=== PATIENT | male | born 1980 | race Two or more races ===

== ENCOUNTER 2019-01-15 17:14 | Outpatient (AMB) | payer BC, SELFPAY ==
[2019-01-15 17:23] VITALS: BP 176/101; PULSE 63; RESP 18; TEMP 37.1; O2SAT 99; BMI 33.0
--- NOTE | 2019-01-15 17:23 | UCVISIT ---
Intake Ht./Wt. Decline/Exclusions Patient Declined Height and Weight this visit: No PT Meets exclusion criteria: No Vital Signs 01/15/19 17:23 01/15/19 17:26 01/15/19 17:30 Height 5 ft 6 in Height Method Measured Weight 92.986 kg Weight Measurement Method Standing Scale BMI 33.0 Temp 98.7 F Temp Source Temporal Artery Scan Pulse 63 Pulse Source Monitor Respiration 18 BP 176/101 H 181/120 H 168/98 H Blood Pressure Source Automatic Cuff Automatic Cuff Manual Cuff- Auscultation Blood Pressure Location Left Upper Arm Right Upper Arm Left Upper Arm Position Sitting Sitting Sitting Pulse Oximetry (%) 99 Oxygen Delivery Method Room Air Intake Visit Reasons: UC Dizziness Triage Triage Allergy / Med Rec Allergies No Known Allergies Allergy (Verified 01/15/19 17:58) Band Placement: Patient Identification XIN: [id number] Arrival Mode of Arrival: Private Vehicle Method of Arrival: Ambulatory Accompanied By: Self PCP or OBGYN visit in last 3 months: No Language Preferred Language: Spanish Air Export Agent Required: No Social History Alcohol / Drugs Hx Alcohol Use: No Hx Substance Use: No Safety Do You Feel Safe at Home: Yes Authorities Contacted: N/A Graham Fall Scale Special Populations Patient Comatose, Paralyzed or Immobile: No Patient Under the Age of 44 Years Old: No Assessment History of falling; immediate or within 3 months: No Secondary diagnosis: No Ambulatory aid: None IV Infusion: No Gait/Transferring: Normal/bedrest/immobile Mental Status: Oriented to own ability Score Score: 0 Risk Level/Action Risk Level: Low Risk Action: Good Basic Nursing Care Fall Star Level 1 Fall Star Level 1: Yes Patient Education Topic Education Topics: Discharge Instructions and Plan of Care Teaching Recipient: Patient Readiness, Motivation to Learn: Active Methods: Verbal instruction and Hand Out Educ Materials Suggested by INFO Button/Rx Monograph Given: No Response: Verbalize Understanding Air Export Agent Required: No Population Health PMH Hx Congestive Heart Failure: No Hx Diabetes Mellitus Type 1: No Hx Diabetes Mellitus Type 2: No Hx Renal Disease: No Hx Chronic Obstructive Pulmonary Disease (COPD): No Past Medical History Reviewed and agree with Nursing documentation.: Yes Past Medical History History Provided By: Patient Past Medical History: Yes Cardiac Medical History Hx Cardiac Disorders: Yes Hx Congestive Heart Failure: No Hx Hypertension: Yes Endocrine Medical History Hx Diabetes Mellitus Type 1: No Hx Diabetes Mellitus Type 2: No Genitourinary Medical History Hx Renal Disease: No Respiratory Medical History Hx COPD: No HPI Dizziness (Cardio) presents with headache(s); denies rapid heart rate, syncope or change in vision denies change in vision Most Recent Cardiac Tests: No Data to Display Dizziness Associated symptoms: Reports headache(s); Denies chest pain, confusion or diplopia HPI Comments Details: Patient presents with dizziness, neck tightness, occipital headache, sensation of head fullness and occipital tenderness for 2 days. Patient attest to a history of hypertension that is not controlled with medication as he is not medication compliant. States that he was prescribed 10 mg of lisinopril that he takes as needed. He does attest to taking lisinopril last night and one again this morning. He denies any blurry vision denies any change in mentation denies any recent head trauma. Review of Systems (UC) Review of Systems All systems reviewed & no additional complaints except as documented Const Constitutional: Reports system reviewed and no additional complaints, except as documented, Denies body ache, Denies difficulty sleeping, Reports headache(s), Denies lack of energy, Denies poor appetite, Denies snoring, Denies weight gain and Denies weight loss Eyes Eyes: Denies blurry vision, Denies bulging eyes, Denies change in vision, Denies double vision, Denies loss of vision and Denies other visual disturbances ENT Ears. Nose, Mouth, and Throat: Reports system reviewed and no additional complaints, except as documented, Reports as per HPI and Reports headache(s) Card Cardiovascular: Denies chest pain, Denies chest pain at rest, Denies chest pain with activity, Denies fainting and Denies fast heart rate Resp Respiratory: Denies chest congestion, Denies cough, Denies excessive phlegm production and Denies snoring Musc Musculoskeletal: Reports as per HPI, Denies body aches, Denies joint pain and Denies numbness Neuro Neurologic: Denies system reviewed and no additional complaints, except as documented, Denies abnormal movements, Denies abnormal speech, Denies confusion, Denies fainting, Reports headache(s), Denies lack of coordination, Denies loss of vision and Denies numbness Psych Psychiatric: Denies confusion Exam (UC) Limitations: no limitations General Appearance: alert, in no apparent distress, comfortable, cooperative, healthy appearing, well developed and well groomed Head exam: atraumatic, normocephalic and normal inspection Eye exam: Reports normal appearance and Reports EOMI ENT exam: Present normal exam, normal external ear exam, TM's normal bilaterally, normal oropharynx and mucous membranes moist SPO2%: 98% Respiratory exam: Present normal lung sounds bilaterally, normal respiratory effort, able to speak in complete sentences and clear to ascultation bilaterally Cardiovascular exam: Present regular rate and regular rhythm Abdominal Exam: Present non-tender, non-distended, normal bowel sounds and soft Extremities exam: normal inspection Neurological Exam: Present alert, awake and oriented X3 Office Procedures Level of Care Nursing/Assessment/Reassessment Patient Status: Established Patient Nursing Assessment/Reassessment: Triage Asessment, Initial Vital Signs and RN General Assessments Coordination of Care: DC Instructions Simple Established Patient Charge Established Patient Point Assignment: 40 Established Patient Point Assignment: EP Level 2 (40-75) Procedures: Pulse Ox reading: Yes UC Refer Patient to ED Yes Supplemental Info Given patient is blood pressure in office, I counseled patient to go to the ED immediately for further care Assessment and Plan Assessment & Plan (1) Uncontrolled stage 2 hypertension: Plan - Katya Smart PA-C: Please go to the ER immediately Plan Details Plan of Treatment: Please go to the ER immediately Other Orders: Orders: Refer Patient to ED Today Instructions: ED Hypertension Conf Out Of Control Additional Information PA/PHYSICIST [employer] Supervising Physician: Kirk Horowitz DC Evaluation Discharge Information Seen, Treated and Released by Provider: No Left Prior to Receiving Discharge Instructions: No Transfer to Outside Facility: No Vital Signs Vitals Signs N/A: Yes Pain Pain Medication / Other Intervention Provided: No Medication Medication Given this Visit: No Discharge Information Condition on Discharge: Stable Mode of Discharge: Ambulatory Discharge Transportation: Private Vehicle Instructions Air Export Agent Required: No Discharge Instructions Given To: Patient Was Follow up Care Ordered: Yes Verbalizes Understanding of Discharge Instructions: Yes [facility] information card provided?: Yes Patient plan follow up w/PCP for [facility]: No Discharge Comment Discharge Comment: per Will PA pt to be referred to [facility] ed for higher loc, pt denies need for ambulance, pt verbalizes understanding of f/u instructions with eR
[2019-01-15 17:26] VITALS: BP 181/120
[2019-01-15 17:30] VITALS: BP 168/98
== END 2019-01-15 17:51 | disposition home or self-care (01) ==
PROVIDERS: PCP Family Medicine; Referring Provider Family Medicine; Visit Provider Physician Assistant
DX: I10 Essential (primary) hypertension (principal)

== ENCOUNTER → 2024-07-06 | Outpatient (CLI) | payer BC, SELFPAY ==
[2024-07-06 09:45] LABS: Quantiferon-TB* See Sep Rpt
[2024-07-06 10:30] LABS: Basophils % (Auto) 1 % (0-2.5); Eosinophils # (Auto) 0.1 Thou/mm3 (0.0-0.5); Eosinophils % (Auto) 3 % (0-10); Hemoglobin 13.9 g/dL (13.5-16.0); Immature Granulocytes % (Auto) 0 % (0-0); Lymphocytes # (Auto) 1.7 Thou/mm3 (1.0-4.8); Lymphocytes % (Auto) 39 % (10-50); Mean Corpuscular HGB Conc 34.8 g/dl (31.0-37.0); Mean Corpuscular Hemoglobin 30.3 pg (25.0-35.0); Mean Corpuscular Volume 87 fL (80-100); Monocytes # (Auto) 0.3 Thou/mm3 (0.0-0.8); Monocytes % (Auto) 7 % (0-12); Neutrophils # (Auto) 2.3 Thou/mm3 (1.8-7.7); Neutrophils % (Auto) 51 % (37-80); Nucleated Red Blood Cell % 0 /100 WBC (0); Platelet Count 230 Thou/mm3 (140-440); RDW Standard Deviation 39.8 fL (35.1-43.9); Red Blood Count 4.58 Miln/mm3 (4.50-5.90); White Blood Count 4.4 Thou/mm3 (3.8-10.6)
[2024-07-06 10:42] LABS: Alanine Aminotransferase 35 U/L (10-49); Albumin, Serum 4.6 gm/dL (3.5-5.0); Alkaline Phosphatase 86 U/L (46-116); Anion Gap 5 (7-16); Aspartate Amino Transferase 20 U/L (0-34); BUN/Creatinine Ratio 12 Ratio (12-20); Bilirubin,Direct 0.1 mg/dL (0.0-0.3); Bilirubin,Total 0.5 mg/dL (0.3-1.2); Blood Urea Nitrogen 11 mg/dL (9-23); Calcium 8.6 mg/dL (8.3-10.6); Carbon Dioxide 29.7 mMol/L (20.0-31.0); Cardiac Risk Estimate 6.8 RATIO (4.0-6.7); Chloride 105 mMol/L (98-107); Cholesterol 230 mg/dL (132-200); Creatinine (Component) 0.9 mg/dL (0.6-1.3); Glucose 103 mg/dL (74-106); HDL Cholesterol 34 mg/dL (40-60); LDL Cholesterol,Calculated 168 mg/dL (0-130); Osmolality,Calculated 278 (275-295); Potassium 3.7 mMol/L (3.4-5.1); Sodium 140 mMol/L (136-145); Total Protein 7.4 gm/dL (5.7-8.2); Triglycerides 141 mg/dL (30-150); eGFR > 60 See Note
[2024-07-06 14:39] LABS: Hepatitis B Surface Ab NonReact(Not Immune) (Immune); Hepatitis B Surface Antigen Non Reactive (Non React); Hepatitis C Antibody Non Reactive (Non React)
[2024-07-13 06:32] LABS: Direct LDL* 167 mg/dL (<100); Hepatitis B Core Ab,Total* NONREACTIVE
== END | disposition home or self-care (01) ==
LOC: COPL 09:08
PROVIDERS: PCP Internal Medicine; Referring Provider Nurse Practitioner Family; Visit Provider Nurse Practitioner Family
DX: L40.0 Psoriasis vulgaris (principal)
CPT/HCPCS: 36415; 80048; 80061; 80076; 83721; 85025; 86480; 86704; 86706; 86803; 87340

== ENCOUNTER → 2024-07-14 | Outpatient (CLI) | payer BC, SELFPAY ==
[2024-07-14 09:19] LABS: Collection Type, Urine Clean Catch
[2024-07-14 09:52] LABS: Basophils % (Auto) 1 % (0-2.5); Eosinophils # (Auto) 0.1 Thou/mm3 (0.0-0.5); Eosinophils % (Auto) 3 % (0-10); Hematocrit 42.6 % (41.0-53.0); Hemoglobin 14.4 g/dL (13.5-16.0); Immature Granulocytes % (Auto) 0 % (0-0); Immature Granulocytes Auto 0.01 Thou/mm3 (0.00-0.00); Lymphocytes % (Auto) 38 % (10-50); Mean Corpuscular HGB Conc 33.8 g/dl (31.0-37.0); Mean Corpuscular Hemoglobin 29.9 pg (25.0-35.0); Mean Corpuscular Volume 88 fL (80-100); Monocytes # (Auto) 0.4 Thou/mm3 (0.0-0.8); Monocytes % (Auto) 8 % (0-12); Neutrophils # (Auto) 2.7 Thou/mm3 (1.8-7.7); Neutrophils % (Auto) 50 % (37-80); Nucleated Red Blood Cell % 0 /100 WBC (0); Platelet Count 250 Thou/mm3 (140-440); RDW Standard Deviation 40.9 fL (35.1-43.9); Red Blood Count 4.82 Miln/mm3 (4.50-5.90); White Blood Count 5.4 Thou/mm3 (3.8-10.6)
[2024-07-14 09:56] LABS: Bilirubin,Urine Negative (Negative); Blood,Urine Negative (Negative); Clarity,Urine Clear (Clear/Hazy); Color,Urine Colorless (Lt Yel-Yel); Glucose, Urine Negative (Negative); Ketones,Urine Negative (Negative); Leukocyte Esterase,Urine Negative (Negative); Nitrite,Urine Negative (Negative); Protein,Urine Negative (Neg - Trace); RBC,Urine 1 /hpf (0-3); Specific Gravity,Urine 1.006 (1.001-1.035); Squamous Epithelial Cell,Urine < 1 /hpf (0-5); Urobilinogen,Urine Negative mg/dL (0.0-1.0); WBC,Urine < 1 /hpf (0-5)
[2024-07-14 10:07] LABS: Creatinine MALB Rnd Ur 27 mg/dL (30-125); Microalbumin, Random Urine < 3 mg/L (0-300)
[2024-07-14 10:10] LABS: Glucose Estimated Average 108 mg/dL (80-131); Hemoglobin A1C 5.4 % Hgb (4.8-6.0)
[2024-07-14 10:19] LABS: Alanine Aminotransferase 38 U/L (10-49); Albumin, Serum 4.6 gm/dL (3.5-5.0); Albumin/Globulin Ratio 1.5 (1.2-2.2); Alkaline Phosphatase 91 U/L (46-116); Anion Gap 9 (7-16); Aspartate Amino Transferase 22 U/L (0-34); BUN/Creatinine Ratio 13 Ratio (12-20); Bilirubin,Total 0.6 mg/dL (0.3-1.2); Blood Urea Nitrogen 13 mg/dL (9-23); Calcium 8.8 mg/dL (8.3-10.6); Calcium (Corrected) 8.8 mg/dL (8.5-10.1); Carbon Dioxide 28.5 mMol/L (20.0-31.0); Cardiac Risk Estimate 6.5 RATIO (4.0-6.7); Chloride 102 mMol/L (98-107); Cholesterol 229 mg/dL (132-200); Globulin 3.1 gm/dL (2.3-3.5); Glucose 105 mg/dL (74-106); HDL Cholesterol 35 mg/dL (40-60); LDL Cholesterol,Calculated 162 mg/dL (0-130); Osmolality,Calculated 277 (275-295); Potassium 4.3 mMol/L (3.4-5.1); Prostate Specific Antigen 0.88 ng/mL (0-4.00); Sodium 139 mMol/L (136-145); Thyroid Stimulating Hormone 1.76 uIU/mL (0.55-4.78); Total Protein 7.7 gm/dL (5.7-8.2); Triglycerides 159 mg/dL (30-150); Uric Acid 6.6 mg/dL (3.7-9.2); eGFR > 60 See Note
[2024-07-14 10:25] LABS: Vitamin B12 377 pg/mL (211-911); Vitamin D 25 Hydroxy Total 21.2 ng/mL (7.3-40.2)
== END | disposition home or self-care (01) ==
LOC: COPL 08:42
PROVIDERS: PCP Internal Medicine; Referring Provider Internal Medicine; Visit Provider Internal Medicine
DX: I10 Essential (primary) hypertension (principal); E78.5 Hyperlipidemia, unspecified
CPT/HCPCS: 36415; 80053; 80061; 81001; 82043; 82306; 82570; 82607; 83036; 84153; 84443; 84550; 85025